=== PATIENT | male | born 1995 | race African-American/Black ===

== ENCOUNTER 2017-03-21 23:03 | Emergency (ER) | payer OTHER ==
[~2017-03-21] VITALS: Ht 185.4 cm; Wt 98.8 kg
[~2017-03-21 23:03] MED LIST: BENTYL20 MG PO; GUANFACINE HCL1 MG PO; IBUPROFEN800 MG PO; LITHIUM CARBON150 MG PO; MOTRIN800 MG PO; SEROQUEL300 MG PO; ULTRAM50 MG PO; VYVANSE20 MG PO; ZOFRAN ODT4 MG PO
[2017-03-22 01:26] VITALS: BP 116/88
== END 2017-03-22 01:30 | disposition home or self-care (01) ==
LOC: EME → EDBD 23:03 → EME 03-22 01:30
DX: S05.92XA Unspecified injury of left eye and orbit, initial encounter (principal); W51.XXXA Accidental striking against or bumped into by another person, initial encounter; Y93.83 Activity, rough housing and horseplay; H53.132 Sudden visual loss, left eye; J45.909 Unspecified asthma, uncomplicated; F31.9 Bipolar disorder, unspecified; Z87.891 Personal history of nicotine dependence
CPT/HCPCS: 99281; 99283

== ENCOUNTER 2018-01-09 20:53 | Emergency (ER) | payer OTHER ==
[~2018-01-09] VITALS: Ht 185.4 cm; Wt 91.0 kg
[2018-01-09] MEDS ORDERED: MOTRIN800 MG PO (23:37)
[2018-01-09] MEDS ORDERED: NORCO 7.5/321 TABLET PO (23:37)
[2018-01-10 00:05] VITALS: BP 136/77
== END 2018-01-10 00:09 | disposition home or self-care (01) ==
LOC: EME 20:53
PROC: 2W3CX1Z Immobilization of Right Lower Arm using Splint (ICD-10-PCS; principal; 2018-01-09)
DX: S52.501A Unspecified fracture of the lower end of right radius, initial encounter for closed fracture (principal); W18.30XA Fall on same level, unspecified, initial encounter
CPT/HCPCS: 73130; 99281; 99284